=== PATIENT | male | born 1995 | race Hispanic/Latino ===

== ENCOUNTER 2022-01-25 14:44 | Outpatient (CLI) | payer BC | END 2022-01-25 14:45 | disposition home or self-care (01) | LOC: LABHHL 14:44 | PROVIDERS: ATTEND Otolaryngology Sleep Medicine | DX: J34.2 Deviated nasal septum (principal); J34.3 Hypertrophy of nasal turbinates | CPT/HCPCS: 88304; 88305; 88311 ==